=== PATIENT | female | born 1965 | race Hispanic/Latino ===

== ENCOUNTER 2018-01-08 02:09 | Emergency (ER) | payer OTHER ==
[2018-01-08] MEDS ORDERED: DiphenhydrAMINE HCL 50 MG/ML VIAL ONE (03:01)
[2018-01-08] MEDS ORDERED: FAMOTIDINE 20MG TAB 20 MG TAB ONE (03:01)
[2018-01-08] MEDS ORDERED: PREDNISONE 20 MG TABLET ONE (03:02)
== END 2018-01-08 03:27 | disposition home or self-care (01) ==
LOC: EDH 02:09
DX: L50.0 Allergic urticaria (principal)
CPT/HCPCS: 96372; 99283; J1200